=== PATIENT | male | born 1985 | race Caucasian/White ===

== ENCOUNTER 2021-01-12 06:51 | Emergency (ER) | payer OTHER ==
[2021-01-12 07:55] LABS: BUN/CREATININE RATIO 17 (0-10)
== END 2021-01-12 10:01 | disposition home or self-care (01) ==
LOC: ER1 06:51
PROVIDERS: Student in an Organized Health Care Education/Training Program
DX: E11.649 Type 2 diabetes mellitus with hypoglycemia without coma (principal); I10 Essential (primary) hypertension; F17.210 Nicotine dependence, cigarettes, uncomplicated; Z79.4 Long term (current) use of insulin; Z79.899 Other long term (current) drug therapy
CPT/HCPCS: 80053; 82962; 99285